=== PATIENT | male | born 1955 | race Two or more races ===

== ENCOUNTER 2017-12-11 14:56 | Emergency (ER) | payer OTHER ==
[2017-12-11 15:16] VITALS: TEMP 99.7
[2017-12-11] MEDS ORDERED: ACETAMINOPHEN 325 MG TAB PO ONE (15:46)
--- NOTE | 2017-12-11 15:54 | EDPHY ---
H & P Time Seen by Provider: 12/11/17 15:19 HPI/ROS: This patient complains of 3 day history of fevers chills diaphoresis and myalgias associated with nasal congestion occasional dry cough. He also has mild frontal headache similar to prior headaches that resolved with antipyretics. He has not taken any antipyretics today. He notes no other exacerbating or alleviating factors. He came in by private vehicle for evaluation of the symptoms. ROS: Constitutional: No significant fatigue. HPI. No facial pain. No ear pain. No sore throat. Pulmonary: No pleuritic pain. No respiratory distress. No dyspnea. Cardiovascular: No lightheadedness. No chest pain. No lower extremity swelling GI: Mild nausea but no vomiting. He still tolerating p.o. Intake. No diarrhea. No abdominal pain. : No dysuria. No testicle pain or swelling. No flank pain. Integumentary: No skin rash. Some diaphoresis as above. 7 point ROS is otherwise negative. Smoking Status: Never smoked Physical Exam: Vital signs are normal except for a temperature of 37.6 degrees. He also has mild hypertension 140/97 General Appearance: Pleasant male Alert, no distress. Eyes: Pupils equal and round no pallor or injection. ENT, Mouth: Mucous membranes moist. Ears: External canals and TMs are clear bilaterally oropharynx: No erythema or exudates. Respiratory: There are no retractions, lungs are clear to auscultation. No wheeze, rales or rhonchi. Cardiovascular: Regular rate and rhythm. No murmur gallop rub. Gastrointestinal: Abdomen is soft and nontender, no masses, bowel sounds normal. Back: No CVA tenderness Neurological: GCS 15 Skin: Warm and dry, no rashes. Musculoskeletal: Neck is supple nontender. Extremities are symmetrical, full range of motion. Psychiatric: Mood and affect are normal DIFFERENTIAL DIAGNOSIS: After history and physical exam differential diagnosis was considered for influenza, flu-like illness, URI with cough Constitutional: Initial Vital Signs Temperature (C) 37.6 C 12/11/17 15:12 Heart Rate 92 12/11/17 15:12 Respiratory Rate 92 H 12/11/17 15:12 Blood Pressure 140/97 H 12/11/17 15:12 O2 Sat (%) 96 12/11/17 15:12 O2 Delivery Mode Room Air Allergies/Adverse Reactions: No Known Allergies Allergy (Unverified 12/11/17 15:16) Home Medications: Medication Instructions Recorded Blood Thinner 12/11/17 MDM/Departure - MDM Diagnostics: Rapid influenza is negative. ED Course/Re-evaluation: Patient with influenza an false negative rapid flu test or influenza like illness who appears clinically well without evidence of significant dehydration , lower respiratory infection, or other concerning findings. History with Tylenol I counseled him regarding influenza like illness. He understands the need to return emergency department should develop any worsening symptoms. Answered all his questions prior to discharge home. - Depart Disposition: Home, Routine, Self-Care Clinical Impression: Influenza-like illness Condition: Good Instructions: Influenza (ED) Additional Instructions: Diagnosis: Influenza like illness Plan: Drink plenty fluids Continue Tylenol for fevers if needed Plenty of rest Avoid going to work or being around many people until her fever has resolved for 24 hr or more. Her symptoms should improve over the next 2-4 days. Follow up with primary care physician for any ongoing symptoms Return emergency department for any significant worsening of her symptoms. Stand Alone Forms: Work Excuse Referrals: NONE *PRIMARY CARE P,. [Primary Care Provider] - As per Instructions Ebonie Tirado MD [[facility] [place] Primary Care Provider] - As per Instructions
[2017-12-11 16:04] VITALS: BP 138/87; PULSE 90; RESP 18; O2SAT 92
== END 2017-12-11 16:05 | disposition home or self-care (01) ==
LOC: CED 14:56
DX: J11.1 Influenza due to unidentified influenza virus with other respiratory manifestations (principal)
CPT/HCPCS: 87400-PO